=== PATIENT | female | born 1990 | race Caucasian/White ===

== ENCOUNTER 2024-10-26 15:27 | Emergency (ER) | payer SELFPAY ==
[~2024-10-26] VITALS: Ht 162.6 cm; Wt 63.5 kg
[2024-10-26 15:31] VITALS: BP 126/78; TEMP 98.3
[2024-10-26 17:05] VITALS: O2SAT 99
== END 2024-10-26 17:05 | disposition home or self-care (01) ==
LOC: ER 15:37
DX: S13.4XXA Sprain of ligaments of cervical spine, initial encounter (principal); F07.81 Postconcussional syndrome; G44.309 Post-traumatic headache, unspecified, not intractable; M54.9 Dorsalgia, unspecified; V43.52XA Car driver injured in collision with other type car in traffic accident, initial encounter; Y93.89 Activity, other specified; Y92.488 Other paved roadways as the place of occurrence of the external cause; Y99.8 Other external cause status
CPT/HCPCS: 70450-TC; 84703-TC